=== PATIENT | male | born 1955 | race Caucasian/White ===

== ENCOUNTER 2017-01-13 06:03 | Inpatient (IN) | payer OTHER ==
[2017-01-07 11:08] VITALS: BMI 24.3
[2017-01-13] MEDS ORDERED: CELECOXIB 200 MG CAPSULE PO ONE (06:11)
[2017-01-13] MEDS ORDERED: TRANEXAMIC ACID 1000 MG/10 ML VIAL IVPUSH ONE (06:11)
[2017-01-13] MEDS ORDERED: oxyCODONE HCL 10 MG SUSTAINED ACTING TABLET PO ONE (06:11)
[2017-01-13] MEDS ORDERED: ROPIVICAINE 0.2%/MORPH PF/KETOROLAC - 51ML DISP.SYRINGE IA ONE (06:11)
[2017-01-13] MEDS ORDERED: CEFAZOLIN 1 GM/D5W 50 ML IVPB ONE (06:11)
[2017-01-13] MEDS ORDERED: GABAPENTIN 300 MG CAPSULE (FP) PO ONE (06:11)
[2017-01-13] MEDS ORDERED: PROPOFOL 20 ML ONE ×3 (07:13→12:05)
[2017-01-13] MEDS ORDERED: LIDOCAINE HCL 2% 100 MG/5 ML DISP.SYRIN ONE (07:15)
[2017-01-13] MEDS ORDERED: VANCOMYCIN 1,000 MG VIAL (RESTRICTED TO ID ONLY) ONE (07:17)
[2017-01-13] MEDS ORDERED: ceFAZolin SODIUM 1 GM VIAL ONE ×2 (07:17→09:13)
[2017-01-13] MEDS ORDERED: BUPIVACAINE HCL/PF 0.5% (5MG/ML) 10 ML VIAL ONE ×2 (07:25→07:50)
[2017-01-13] MEDS ORDERED: DEXAMETHASONE SOD PHOSPHATE/PF 10 MG/ML SDV ONE (07:33)
[2017-01-13] MEDS ORDERED: MIDAZOLAM HCL 2 MG/2 ML SINGLE DOSE VIAL ONE ×3 (07:33→07:40)
[2017-01-13] MEDS ORDERED: EPINEPHrine/PF 1 MG/1 ML (1:1,000) AMPULE ONE (07:33)
[2017-01-13] MEDS ORDERED: BUPIVACAINE HCL/PF (5 MG/ML) 30 ML VIAL IJ ONE (07:34)
--- NOTE | 2017-01-13 08:06 | HP ---
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 Has developed worsening groin/thigh pain and limp. Labs showed elevated chromium and cobalt, MRI showed pseudotumor. History Source: Patient, Medical Record Limitations to Obtaining History: No Limitations - Past Medical History Pulmonary: Yes: Other (Allergic rhinitis) Musculoskeletal: Yes: Osteoarthritis, Other (See HPI) ENT: Yes: Allergic Rhinitis Dermatology: Yes: Other (hx of skin cancer) - Past Surgical History Past Surgical History: Yes: Joint Replacement - Advance Directives Advance Directives: Yes: Health Care Proxy - Smoking History Smoking history: Never smoked - Alcohol/Substance Use Hx Alcohol Use: No - Social History Usual Living Arrangement: Yes: With Spouse ADL: Independent Home Medications - Allergies Allergies/Adverse Reactions: Allergies Allergy/AdvReac Type Severity Reaction Status Date / Time No Known Allergies Allergy Verified 01/13/17 06:48 - Home Medications Home Medications: Ambulatory Orders Fluticasone Prop 0.05% Nasal [Flonase -] 1 - 2 spray NS DAILY PRN 01/07/17 Physical Examination Vital Signs: Vital Signs Temperature 98.0 F 01/13/17 06:36 Pulse Rate 80 01/13/17 06:36 Respiratory Rate 16 01/13/17 06:36 Blood Pressure 117/74 01/13/17 06:36 O2 Sat by Pulse Oximetry (%) 98 01/13/17 06:48 Constitutional: Yes: Well Nourished, No Distress, Calm Eyes: Yes: WNL, Conjunctiva Clear, EOM Intact HENT: Yes: WNL, Atraumatic, Normocephalic Neck: Yes: WNL, Supple Cardiovascular: Yes: WNL, Regular Rate and Rhythm Respiratory: Yes: WNL, Regular Gastrointestinal: Yes: WNL, Soft ...Rectal Exam: Yes: Deferred Musculoskeletal: Yes: Joint Stiffness, Muscle Pain, Muscle Weakness Extremities: Yes: WNL Edema: No Peripheral Pulses WNL: Yes Integumentary: Yes: WNL Wound/Incision: Yes: Other (healed surgical scar from previous surgery) ...Motor Strength: WNL Psychiatric: Yes: WNL, Alert, Oriented Labs: Reviewed in chart Imaging - Results X-ray: Image Reviewed MRI: Report Reviewed, Image Reviewed Problem List - Problems (1) Pain in hip region after total hip replacement Code(s): T84.84XA - PAIN DUE TO INTERNAL ORTHOPEDIC PROSTH DEV/GRFT, INIT (2) History of right hip replacement Code(s): Z96.641 - PRESENCE OF RIGHT ARTIFICIAL HIP JOINT (3) Pain due to total hip replacement Code(s): T84.84XA - PAIN DUE TO INTERNAL ORTHOPEDIC PROSTH DEV/GRFT, INIT Z96.649 - PRESENCE OF UNSPECIFIED ARTIFICIAL HIP JOINT (4) History of implanted metallic device Code(s): PFV3522 - (5) Toxic effect of unspecified metal Code(s): T56.91XA - TOXIC EFFECT OF UNSP METAL, ACCIDENTAL (UNINTENTIONAL), INIT Assessment/Plan 61yo male with failed right alofs-an-kbfli DePuy ASR hip replacement (implanted 2008) for right hip revision Plan discussed with pt: Revision of acetabular component and head ball, debridement of pseudotumor and soft tissues stained with metallosis with retention of as much viable soft tissue as possible. Specific risks of this condition discussed with pt (in addition to standard revision hip replacement risks): Higher risk of dislocation due to compromised abductors from metallosis Need for increase in leg length and/or use of constrained liner if hip is unstable with standard components and equal leg length Revision of femoral stem if found to be loose intraoperatively. Increased chance of reoperation in the literature - pseudotumor can return even after MOM components are reviewed due to retained metal debris in the soft tissue which cannot be debrided Need for further surgeries. Increased chance of infection which may require further surgeries.
[2017-01-13] MEDS ORDERED: ePHEDrine SULFATE 50 MG/1 ML AMPULE ONE ×2 (09:05→10:08)
[2017-01-13] MEDS ORDERED: TRANEXAMIC ACID 1000 MG/10 ML VIAL ONE ×2 (09:14→10:08)
[2017-01-13] MEDS ORDERED: ONDANSETRON 4 MG/2 ML VIAL ONE (09:59)
[2017-01-13] MEDS ORDERED: DEXAMETHASONE SOD PHOSPHATE 4 MG/1 ML VIAL ONE (09:59)
[2017-01-13] MEDS ORDERED: PHENYLEPHRINE HCL 10 MG/1 ML SINGLE DOSE VIAL ONE (10:28)
[2017-01-13] MEDS ORDERED: ONDANSETRON 4 MG/2 ML VIAL IVPUSH PRN (11:22)
[2017-01-13] MEDS ORDERED: oxyCODONE HCL 5 MG TABLET PO PRN ×2 (11:22)
[2017-01-13] MEDS: LACTATED RINGERS SOLUTION 1,000 ML IV SCH (12:19)
[2017-01-13] MEDS: ACETAMINOPHEN 325 MG TABLET (FP) PO SCH ×4 (12:20→23:33)
[2017-01-13] MEDS ORDERED: ONDANSETRON 4 MG/2 ML VIAL IVPB PRN (13:05)
[2017-01-13] MEDS ORDERED: MAGNESIUM HYDROX 2400MG/30ML ORAL SUSPENSION 30 ML CUP PO PRN (13:05)
[2017-01-13] MEDS ORDERED: MAG HYDROX/AL HYDROX/SIMETH 30 ML UNIT-DOSE CUP PO PRN (13:05)
--- NOTE | 2017-01-13 13:05 | OP ---
Operative Note - Note: Operative Date: 01/13/17 Pre-Operative Diagnosis: Right failed metal on metal hip replacement Operation: Revision of right JANEY head ball and acetabular component Findings: see dictation Post-Operative Diagnosis: Same as Pre-op Surgeon: Jordy Cordoba Director Of Quantitative Research: Dia Banks Anesthesia: Spinal Estimated Blood Loss (mls): 200
[2017-01-13] MEDS ORDERED: FLUTICASONE PROP 0.05% 16 GM NASAL SPRAY NS PRN (13:12)
[2017-01-13] MEDS ORDERED: LACTATED RINGERS SOLUTION 1,000 ML IV SCH (13:15)
[2017-01-13] MEDS: traMADol HCL 50 MG TABLET PO SCH ×2 (13:20→19:01)
[2017-01-13] MEDS ORDERED: ACETAMINOPHEN 325 MG TABLET (FP) ONE (13:21)
[2017-01-13] MEDS: KETOROLAC TROMETHAMINE 30 MG/1 ML VIAL IVPUSH SCH ×2 (13:25→18:51)
[2017-01-13] MEDS ORDERED: PANTOPRAZOLE 40 MG TABLET (FP) PO ONE (14:45)
[2017-01-13] MEDS: CEFAZOLIN 1 GM/D5W 50 ML IVPB SCH (17:47)
[2017-01-13] MEDS: CELECOXIB 200 MG CAPSULE PO SCH (21:15)
[2017-01-13] MEDS: SENNOSIDES/DOCUSATE COMBO (SENNA PLUS) TABLET (UD) PO SCH (21:15)
[2017-01-13] MEDS: GABAPENTIN 300 MG CAPSULE (FP) PO SCH (21:15)
[2017-01-13] MEDS: ASCORBIC ACID 500 MG TABLET (FP) PO SCH (21:15)
[2017-01-13] MEDS: oxyCODONE HCL 10 MG SUSTAINED ACTING TABLET PO SCH (21:16)
[2017-01-13] MEDS ORDERED: GABAPENTIN 300 MG CAPSULE (FP) PO SCH (22:00)
[2017-01-14] MEDS: traMADol HCL 50 MG TABLET PO SCH ×4 (00:23→18:24)
[2017-01-14] MEDS: KETOROLAC TROMETHAMINE 30 MG/1 ML VIAL IVPUSH SCH ×2 (00:23→06:28)
[2017-01-14] MEDS: CEFAZOLIN 1 GM/D5W 50 ML IVPB SCH (01:55)
[2017-01-14] MEDS: ACETAMINOPHEN 325 MG TABLET (FP) PO SCH ×3 (05:56→17:48)
[2017-01-14] MEDS: ASPIRIN 325 MG TABLET PO SCH (08:35)
--- NOTE | 2017-01-14 09:13 | PN ---
Progress Note (short form) - Note Progress Note: ANESTHESIOLOGY POSTOP: Patient doing well POD#1. Pain adequately controlled with PO meds this morning. Encouraged patient to use incentive spirometer and to ambulate. Continue current care.
[2017-01-14] MEDS: PANTOPRAZOLE 40 MG TABLET (FP) PO SCH (09:15)
[2017-01-14] MEDS: CELECOXIB 200 MG CAPSULE PO SCH ×2 (09:15→21:14)
[2017-01-14] MEDS: oxyCODONE HCL 10 MG SUSTAINED ACTING TABLET PO SCH ×2 (09:16→21:14)
[2017-01-14] MEDS: GABAPENTIN 300 MG CAPSULE (FP) PO SCH ×2 (09:16→21:13)
[2017-01-14] MEDS: SENNOSIDES/DOCUSATE COMBO (SENNA PLUS) TABLET (UD) PO SCH ×2 (09:16→21:14)
[2017-01-14] MEDS: MULTIVITAMINS (DAILY MVI) TABLET (FP) PO SCH (09:16)
[2017-01-14] MEDS: ASCORBIC ACID 500 MG TABLET (FP) PO SCH ×2 (09:19→21:14)
[2017-01-14 10:11] LABS: MCH 30.6 pg (25.7-33.7); MCHC 34.2 g/dl (32.0-35.9); MEAN CELL VOLUME 89.5 fl (80-96); MEAN PLT VOLUME 8.6 fl (7.5-11.1); PLATELET COUNT 186 K/MM3 (134-434); RDW 13.1 % (11.9-15.9); WHITE BLOOD COUNT 8.3 K/mm3 (4.0-10.8)
--- NOTE | 2017-01-14 10:30 | SURG ---
Surgery Wearing Apparel Presser Note Wearing Apparel Presser: Dia Banks PA-C Date of Service: 01/13/17 Diagnosis: Right failed metal on metal hip replacement Procedure: Revision of right JANEY head ball and acetabular component I was present for the entirety of the operative procedure. For further detail, please refer to operative report. Visit type - Case Type Case Type: Scheduled Admission
[2017-01-14] MEDS: LACTATED RINGERS SOLUTION 1,000 ML IV SCH (11:40)
[2017-01-14 11:42] LABS: CREATININE 0.9 mg/dl (0.6-1.3); GLUCOSE,RANDOM 94 mg/dl (74-106)
[2017-01-14 11:43] LABS: ANION GAP 7 (8-16); CALCIUM 8.4 mg/dl (8.4-10.2); CO2 25 mmol/L (22-28)
--- NOTE | 2017-01-14 19:57 | PN ---
Progress Note (short form) - Note Progress Note: Pt seen and examined. Doing very well. Pain well controlled. Was able to walk 700+ feet today with the physical therapist. AVSS Selected Entries 01/14/17 01/14/17 08:04 14:09 Temperature 97.6 F Pulse Rate 61 Respiratory 18 Rate Blood Pressure 98/56 O2 Sat by Pulse 96 96 Oximetry (%) Oxygen Delivery Room Air Method Laboratory Tests 01/14/17 01/14/17 07:44 07:44 WBC 8.3 Hgb 11.7 Hct 34.3 L Plt Count 186 Sodium 135 L Potassium 4.7 Chloride 103 Carbon Dioxide 25 Anion Gap 7 L BUN 23 H Creatinine 0.9 Random Glucose 94 Calcium 8.4 Gen: NAD RLE: c/d/i, NVID A/P 61yo male POD#1 s/p revision of right JANEY for metallosis 1. PT/OOB - WBAT RLE 2. Plan for d/c home tomorrow Problem List - Problems (1) Pain in hip region after total hip replacement Code(s): T84.84XA - PAIN DUE TO INTERNAL ORTHOPEDIC PROSTH DEV/GRFT, INIT (2) History of right hip replacement Code(s): Z96.641 - PRESENCE OF RIGHT ARTIFICIAL HIP JOINT (3) Pain due to total hip replacement Code(s): T84.84XA - PAIN DUE TO INTERNAL ORTHOPEDIC PROSTH DEV/GRFT, INIT Z96.649 - PRESENCE OF UNSPECIFIED ARTIFICIAL HIP JOINT (4) History of implanted metallic device Code(s): [id number] - (5) Toxic effect of unspecified metal Code(s): T56.91XA - TOXIC EFFECT OF UNSP METAL, ACCIDENTAL (UNINTENTIONAL), INIT
[2017-01-15] MEDS: ACETAMINOPHEN 325 MG TABLET (FP) PO SCH ×3 (00:02→12:26)
[2017-01-15] MEDS: traMADol HCL 50 MG TABLET PO SCH ×2 (01:03→06:44)
[2017-01-15 06:49] VITALS: PULSE 64
[2017-01-15] MEDS: ASPIRIN 325 MG TABLET PO SCH (07:51)
--- NOTE | 2017-01-15 08:18 | PN ---
Progress Note (short form) - Note Progress Note: Pt seen and examined. Doing very well. Pain well controlled. AVSS Selected Entries 01/14/17 01/15/17 01/15/17 22:37 05:59 06:49 Temperature 97.9 F Pulse Rate 61 64 Respiratory 18 16 Rate Blood Pressure 84/46 103/55 O2 Sat by Pulse 96 92 L Oximetry (%) Oxygen Delivery Room Air Room Air Method Laboratory Tests 01/15/17 01/15/17 07:32 07:32 WBC Pending Sodium Pending Gen: NAD RLE: c/d/i, NVID A/P 61yo male POD#2 s/p revision of right JANEY for metallosis 1. PT/OOB - WBAT RLE 2. D/C home today Problem List - Problems (1) Pain in hip region after total hip replacement Code(s): T84.84XA - PAIN DUE TO INTERNAL ORTHOPEDIC PROSTH DEV/GRFT, INIT (2) History of right hip replacement Code(s): Z96.641 - PRESENCE OF RIGHT ARTIFICIAL HIP JOINT (3) Pain due to total hip replacement Code(s): T84.84XA - PAIN DUE TO INTERNAL ORTHOPEDIC PROSTH DEV/GRFT, INIT Z96.649 - PRESENCE OF UNSPECIFIED ARTIFICIAL HIP JOINT (4) History of implanted metallic device Code(s): [id number] - (5) Toxic effect of unspecified metal Code(s): T56.91XA - TOXIC EFFECT OF UNSP METAL, ACCIDENTAL (UNINTENTIONAL), INIT
--- NOTE | 2017-01-15 08:20 | DS ---
Physical Examination Vital Signs: Vital Signs Temperature 97.9 F 01/15/17 05:59 Pulse Rate 64 01/15/17 06:49 Respiratory Rate 16 01/15/17 06:49 Blood Pressure 103/55 01/15/17 06:49 O2 Sat by Pulse Oximetry (%) 92 L 01/15/17 05:59 Discharge Summary Reason For Visit: HX OF RIGHT TOTAL HIP ARTHROPLASTY Current Active Problems History of implanted metallic device (Acute) History of right hip replacement (Acute) Pain due to total hip replacement (Acute) Pain in hip region after total hip replacement (Acute) Toxic effect of unspecified metal (Acute) Procedures: Principal: Revision of right total hip arthroplasty head ball and acetabular component, repair of abductor muscle damage due to metallosis Hospital Course: Admitted for elective surgery. Procedure performed without complications. Pt received postoperative antibiotic prophylaxis and DVT ppx. Ambulated with physical therapy. Stable for discharge home with outpatient followup. Condition: Stable - Instructions Diet, Activity, Other Instructions: Dr Cordoba - Hip Replacement Instructions Keep the Aquacel dressing on until removed by Dr. Cordoba in 10-14 days - it is antibacterial and waterproof and you can shower with it on. Call the office for a follow-up appointment with Dr. Cordoba in 10-14 days. [phone] Take one Aspirin 325mg daily for 6 weeks to prevent blood clots in your legs. Take one Pantoprazole 40mg daily for 6 weeks to protect against heartburn and ulcers. Take Celebrex 200mg twice daily for 30 days to reduce swelling and inflammation. Take an [id number] multivitamin, vitamin C supplement, and stool softener daily. For pain: *Mild pain (1-3/10): Take 1 Tramadol tablet every 4 hours as needed. Moderate pain (4-6/10): Take 1 Tramadol tablet and 1 Percocet tablet every 4 hours as needed. Severe pain (7-10/10): Take 1 Tramadol tablet and 2 Percocet tablets every 4 hours as needed. Activity: You can put as much weight on the operative leg as you want. For the first 6 weeks, all you need to do is walk around the house, go up/down stairs, and sit down/get up. After 6 weeks when everything is healed (and bone has grown into the implant) you will be sent for more intensive outpatient physical therapy. Always use a walker or cane for balance and to prevent falls. FOR THE FIRST 6 WEEKS, DO NOT EXTERNALLY ROTATE YOUR LEG (TURN IT OUT CLOCKWISE) MORE THAN 45 DEGREES. BE ESPECIALLY CAREFUL WHEN SITTING IN A CHAIR - MAKE SURE YOUR RIGHT KNEE AND FOOT ARE FACING STRAIGHT AHEAD After 6 weeks you will have no restrictions. Disposition: VNS/HOME HEALTH CARE - Home Medications Comprehensive Discharge Medication List: Ambulatory Orders Fluticasone Prop 0.05% Nasal [Flonase -] 1 - 2 spray NS DAILY PRN 01/07/17 Ascorbic Acid [Vitamin C -] 500 mg PO BID tablet 01/14/17 Aspirin [ASA -] 325 mg PO DAILY@0800 tablet 01/14/17 Celecoxib [CeleBREX -] 200 mg PO BID #60 tab 01/14/17 Multivitamins [Multivit ([facility] Formul[facility])] 1 tab PO DAILY tab 01/14/17 Oxycodone HCl/Acetaminophen [Percocet 5-325 mg Tablet] 1 - 2 tab PO Q4H PRN #60 tablet MDD 10 01/14/17 Pantoprazole Sodium [Protonix -] 40 mg PO DAILY #40 tab 01/14/17 Sennosides/Docusate Sodium [Pericolace -] 1 tablet PO BID tablet 01/14/17 Tramadol HCl [Ultram -] 50 mg PO Q4H PRN #90 tablet MDD 6 01/14/17
[2017-01-15 09:07] LABS: ANION GAP 5 (8-16); CO2 25 mmol/L (22-28); CREATININE 0.8 mg/dl (0.6-1.3); GLUCOSE,RANDOM 93 mg/dl (74-106)
[2017-01-15 09:33] VITALS: BP 95/56; TEMP 98
[2017-01-15 10:20] LABS: MCH 30.8 pg (25.7-33.7); MCHC 34.1 g/dl (32.0-35.9); MEAN CELL VOLUME 90.3 fl (80-96); MEAN PLT VOLUME 8.8 fl (7.5-11.1); PLATELET COUNT 135 K/MM3 (134-434); RDW 13.9 % (11.9-15.9); WHITE BLOOD COUNT 6.1 K/mm3 (4.0-10.0)
[2017-01-15] MEDS: PANTOPRAZOLE 40 MG TABLET (FP) PO SCH (10:28)
[2017-01-15] MEDS: SENNOSIDES/DOCUSATE COMBO (SENNA PLUS) TABLET (UD) PO SCH (10:28)
[2017-01-15] MEDS: ASCORBIC ACID 500 MG TABLET (FP) PO SCH (10:28)
[2017-01-15] MEDS: CELECOXIB 200 MG CAPSULE PO SCH (10:29)
[2017-01-15] MEDS: MULTIVITAMINS (DAILY MVI) TABLET (FP) PO SCH (10:29)
[2017-01-15] MEDS: GABAPENTIN 300 MG CAPSULE (FP) PO SCH (10:29)
[2017-01-15] MEDS: oxyCODONE HCL 10 MG SUSTAINED ACTING TABLET PO SCH (10:31)
[2017-01-15] MEDS: LACTATED RINGERS SOLUTION 1,000 ML IV SCH (12:23)
--- NOTE | 2017-01-16 14:54 | PATH ---
Surgical Pathology Report Patient Name: LIV PLEITEZ Med. Rec. #: [id number] /Age/Gender: 1955 (Age: 61) / M Account: [id number] Location: [facility] MED-SURG Taken: 01/13/2017 Received: 01/13/2017 Reported: 01/16/2017 Physicians: Jordy Cordoba M.D. Specimen(s) Received A: RIGHT TISSUE CAPSULE B: RIGHT HIP SUB CAPSULE C: RIGHT HIP ADVERSE LOCAL TISSUE REACTION D: RIGHT HIP CAPSULE E: RIGHT HIP TRUNNION CORROSION F: RIGHT HIP ABDUCT G: HEAD BALL AND ACETABULAR RIGHT HIP EXPLANT Clinical History Failed metal on metal right hip replacement Final Diagnosis A. SOFT TISSUE, RIGHT TISSUE CAPSULE, EXCISION: FIBROUS TISSUE WITH CHRONIC INFLAMMATION, FOREIGN BODY REACTION, AND FIBRINOID NECROSIS. B. SOFT TISSUE, RIGHT HIP SUBCAPSULE, EXCISION: FIBROUS TISSUE WITH CHRONIC INFLAMMATION, FOREIGN BODY REACTION, AND FIBRINOID NECROSIS. C. SOFT TISSUE, RIGHT HIP ADVERSE LOCAL TISSUE REACTION, EXCISION: PREDOMINANTLY ACELLULAR PROTEINACEOUS MATERIAL, AND SCANT FIBROUS TISSUE WITH FOREIGN BODY REACTION. D. SOFT TISSUE, RIGHT HIP CAPSULE, EXCISION: FIBROUS TISSUE WITH CHRONIC INFLAMMATION, FOREIGN BODY REACTION, AND FIBRINOID NECROSIS. E. SOFT TISSUE, RIGHT HIP TRUNNION CORROSION, EXCISION: FOREIGN MATERIAL AND ADMIXED PROTEINACEOUS MATERIAL. F. SOFT TISSUE, RIGHT HIP ABDUCTOR, EXCISION: FIBROUS TISSUE WITH CHRONIC INFLAMMATION, FOREIGN BODY REACTION, AND FIBRINOID NECROSIS. G. ORTHOPEDIC HARDWARE, RIGHT HIP, REMOVAL: ORTHOPEDIC HARDWARE CONSISTENT WITH HIP PROSTHESIS (GROSS ONLY). PROSTHESIS FORWARDED TO [facility]. Electronically Signed Julio Miles M.D. Gross Description A. Received in formalin labeled "right hip tissue capsule," is a 2.3 x 1.7 x 0.7 cm aggregate of ocampo-brown, necrotic appearing, friable soft tissue fragments. A outside industrial sales representative portion is submitted in one cassette. B. Received in formalin labeled "right hip subcapsule," is a 4.0 x 3.3 x 2.7 cm ocampo-pickens, irregular portion of fibrous tissue with attached friable soft tissue. Process Designer sections are submitted in one cassette. C. Received in formalin labeled "right hip adverse local tissue reaction," is a 3.4 x 2.6 x 0.5 cm aggregate of ocampo-pickens, friable soft tissue fragments. A outside industrial sales representative portion is submitted in one cassette. D. Received in formalin labeled "right hip capsule," is a 4.0 x 2.5 x 2.2 cm portion of ocampo pickens fibrous tissue with attached friable soft tissue. A outside industrial sales representative section is submitted in one cassette. E. Received in formalin labeled "right hip trunnion corrosion," is a 2.2 x 1.7 x 0.3 cm aggregate of black, fragments of firm material. A outside industrial sales representative portion is submitted in one cassette. F. Received in formalin labeled "right hip abductor," is a 5.0 x 3.4 x 0.8 cm aggregate of ocampo-pickens fragments of friable soft tissue. A outside industrial sales representative portion is submitted in one cassette. G. Received fresh labeled "head ball and acetabular component right hip," are 2 pickens metallic portions of hardware, consistent with a hip implant. The specimens measure 4.6 and 5.6 cm in greatest dimension and display minimal attached ocampo pickens soft tissue. The specimens are placed into 10% buffered formalin for 24 hours, removed from the formalin and are sent to: [facility] [address] [place] [address] 01/15/2017
== END 2017-01-15 12:55 | disposition home health service (06) | DRG 301 ==
LOC: FM/S 06:03
PROVIDERS: ADMIT Student in an Organized Health Care Education/Training Program; ATTEND Student in an Organized Health Care Education/Training Program
PROC: 0SR903Z Replacement of Right Hip Joint with Ceramic Synthetic Substitute, Open Approach (ICD-10-PCS; 2017-01-13)
PROC: 0SU909Z Supplement Right Hip Joint with Liner, Open Approach (ICD-10-PCS; 2017-01-13)
PROC: 0SP90JZ Removal of Synthetic Substitute from Right Hip Joint, Open Approach (ICD-10-PCS; principal; 2017-01-13 09:26)
DX: T84.090A Other mechanical complication of internal right hip prosthesis, initial encounter (principal); J30.9 Allergic rhinitis, unspecified; M19.90 Unspecified osteoarthritis, unspecified site; T84.84XA Pain due to internal orthopedic prosthetic devices, implants and grafts, initial encounter; T56.91XA Toxic effect of unspecified metal, accidental (unintentional), initial encounter; Y83.9 Surgical procedure, unspecified as the cause of abnormal reaction of the patient, or of later complication, without mention of misadventure at the time of the procedure; Z85.828 Personal history of other malignant neoplasm of skin; Z96.641 Presence of right artificial hip joint
CPT/HCPCS: 36415; 73502-TC-RT; 80048; 85027; 87070; 87205; 88300-TC; 88304-TC; 94010; 94760; 97116-GP; 97162-GP